=== PATIENT | female | born 1985 | race Two or more races ===

== ENCOUNTER 2019-08-05 21:31 | Emergency (ER) | payer BC ==
[~2019-08-05] VITALS: Ht 167.6 cm; Wt 68.0 kg
[2019-08-05 21:49] VITALS: BP 131/92
[2019-08-05] MEDS ORDERED: GENTAMICIN OPTH OINT 0.3% 3.5 G TUBE OP ONE (23:00)
== END 2019-08-05 23:39 | disposition home or self-care (01) ==
LOC: ER 21:31
DX: T15.12XA Foreign body in conjunctival sac, left eye, initial encounter (principal); F41.9 Anxiety disorder, unspecified; W45.8XXA Other foreign body or object entering through skin, initial encounter; Y93.89 Activity, other specified; Y92.89 Other specified places as the place of occurrence of the external cause; Y99.8 Other external cause status